=== PATIENT | male | born 1975 | race Native Hawaiian/Other Pacific Islander ===

== ENCOUNTER 2021-10-17 18:04 | Emergency (ER) | payer OTHER ==
[~2021-10-17] VITALS: Ht 152.4 cm; Wt 61.2 kg
[~2021-10-17 18:04] MED LIST: FLEXERIL10 MG PO; NAPROSYN500 MG PO; NKHM; ULTRAM50 MG PO
== END 2021-10-17 20:00 | disposition left against medical advice (07) ==
LOC: ED 18:04
DX: Z53.21 Procedure and treatment not carried out due to patient leaving prior to being seen by health care provider (principal)

== ENCOUNTER 2022-05-06 16:08 | Emergency (ER) | payer OTHER ==
[~2022-05-06] VITALS: Ht 157.4 cm; Wt 54.4 kg
[2022-05-06 17:58] LABS: HEMATOCRIT 42.4 % (42.0-52.0); MANUAL DIFF REFLEX YES; MEAN CELL VOLUME 89.8 fl (80.0-94.0); MEAN CORPUSCULAR HGB 30.5 pg (27.0-31.0); MEAN PLATELET VOLUME 10.8 fl (9.6-12.3); PLATELET COUNT AUTOMATED 291 10*3/uL (130-400); RED BLOOD COUNT 4.72 10*6/uL (4.50-5.90); RED CELL DISTRI WIDTH 14.1 % (0-14.5); WHITE BLOOD COUNT 22.9 10*3/uL (4.8-10.8)
[2022-05-06 18:24] LABS: PLATELET SUFFICIENCY NORMAL (NORMAL); TOTAL CELLS COUNTED 100 #CELLS; TOXIC GRANULATION SLIGHT
[2022-05-06 23:56] LABS: BUN 13 mg/dl (7-24); CHLORIDE 102 mmol/L (98-107); CREATININE 0.72 mg/dL (0.70-1.30); POTASSIUM 4.1 mmol/L (3.5-5.1); SODIUM 134 mmol/L (136-145)
== END 2022-05-07 00:35 | disposition short-term general hospital (02) ==
LOC: ED 16:08
PROVIDERS: Emergency Medicine; Physician Assistant
DX: J05.10 Acute epiglottitis without obstruction (principal); Z20.822 Contact with and (suspected) exposure to COVID-19; D72.829 Elevated white blood cell count, unspecified